=== PATIENT | male | born 1960 | race Caucasian/White ===

== ENCOUNTER 2018-09-06 11:13 | Emergency (ER) | payer OTHER | END 2018-09-06 13:31 | disposition other institution (70) | LOC: ED 11:13 | DX: Z02.89 Encounter for other administrative examinations (principal) ==

== ENCOUNTER 2018-09-06 11:13 | Emergency (ER) | payer SELFPAY ==
[~2018-09-06] VITALS: Ht 175.3 cm; Wt 81.6 kg
[2018-09-06 11:21] VITALS: Ht 175.3 cm; Wt 81.6 kg
[2018-09-06 11:45] LABS: BASOPHIL % 1.1 % (0-2); PLATELET COUNT 389 x10^3mcL (130-400); RED CELL DISTRIBUTION WIDTH 14.2 % (11.5-14.5)
[2018-09-06 11:54] LABS: CARBON DIOXIDE 24.4 mmol/L (21-32); CHLORIDE SERUM 105 mmol/L (98-107); CREATININE SERUM 0.9 mg/dL (0.7-1.3); GFR1 > 60 mL/min; GLUCOSE SERUM 119 mg/dL (74-106); POTASSIUM SERUM 3.8 mmol/L (3.5-5.1); SODIUM SERUM 138 mmol/L (136-145)
[2018-09-06 11:58] LABS: ALKALINE PHOSPHATASE 142 U/L (46-116); ALT/SGPT 30 U/L (16-63); AST/SGOT 21 U/L (15-37); BILIRUBIN TOTAL 0.5 mg/dL (0.20-1.00); TOTAL PROTEIN, SERUM 7.8 g/dL (6.4-8.2)
[2018-09-06 11:59] LABS: ALBUMIN 3.1 g/dL (3.4-5.0)
[2018-09-06 13:01] VITALS: BP 132/71
== END 2018-09-06 13:31 | disposition other institution (70) ==
LOC: ED 11:13
PROVIDERS: Emergency Medicine
DX: R53.1 Weakness (principal); G89.29 Other chronic pain; M25.551 Pain in right hip; E11.9 Type 2 diabetes mellitus without complications
CPT/HCPCS: 36415; G0480; Q0092